=== PATIENT | female | born 1990 | race Caucasian/White ===

== ENCOUNTER 2020-01-23 13:36 | Outpatient (CLI) | payer MEDICAID ==
[~2020-01-23] VITALS: Ht 167.6 cm; Wt 72.1 kg
[2020-01-23 14:21] VITALS: BP 121/72
--- NOTE | 2020-01-23 15:45 | Consultation ---
DATE OF CONSULTATION: 01/23/2020 CHIEF COMPLAINT: Abdominal pain, nausea chronic, constipation. PAST MEDICAL HISTORY: 1. Hypertension. 2. Depression. 3. Bulimia. PAST SURGICAL HISTORY: Tonsillectomy. MEDICATIONS: Please see medication reconciliation list. FAMILY HISTORY: Noncontributory. SOCIAL HISTORY: The patient denies any tobacco, alcohol, or drug abuse. ALLERGIES: No known allergies. REVIEW OF SYSTEMS: Positive for abdominal pain, GERD, constipation, nausea chronic, bloating. PHYSICAL EXAMINATION: VITAL SIGNS: Temperature 97, blood pressure 121/72, pulse 62, respirations 20. HEENT: Normocephalic and atraumatic. Sclerae anicteric. NECK: Supple. No evidence of obvious lymphadenopathy. CARDIOVASCULAR: Regular rate and rhythm. Plus S1 and S2. LUNGS: Clear to auscultation bilaterally. ABDOMEN: Positive bowel sounds. Soft and nontender. No rebound. No guarding. No peritoneal sign. EXTREMITIES: No cyanosis, no clubbing, no edema. ASSESSMENT AND PLAN: This is a 30-year-old female with chronic nausea since October 2019 she moved back to home to live with her parents. Denies any change in diet. She has prior history of bulimia, Zofran did not help her. We gave a prescription for omeprazole and also we are going to go and schedule for endoscopy. The patient also has symptoms of constipation, IBS. The patient was given prescription for Align one tablet p.o. daily. Given the constipation, we want to avoid Elavil. The patient to come back after endoscopy for followup. Manolo Friedman M.D. DR: Emmett JOB#: [id number] CC:
[2020-01-24] MEDS ORDERED: WELLBUTRIN XL150 MG ORAL (08:29)
[2020-01-24] MEDS ORDERED: LEXAPRO20 MG ORAL (08:29)
[2020-01-24] MEDS ORDERED: HYDRALAZINE HCL10 MG ORAL (08:29)
== END 2020-01-23 15:36 | disposition home or self-care (01) ==
LOC: PAN 13:36
DX: R10.9 Unspecified abdominal pain (principal); R11.0 Nausea; K59.00 Constipation, unspecified; I10 Essential (primary) hypertension; F32.9 Major depressive disorder, single episode, unspecified; K21.9 Gastro-esophageal reflux disease without esophagitis; R14.0 Abdominal distension (gaseous)
CPT/HCPCS: G0463

== ENCOUNTER 2020-03-22 13:10 | Outpatient (CLI) | payer MEDICAID ==
[~2020-03-22 13:10] MED LIST: HYDRALAZINE HCL10 MG ORAL; LEXAPRO20 MG ORAL; WELLBUTRIN XL150 MG ORAL
[2020-03-22 13:22] VITALS: BP 120/65
--- NOTE | 2020-03-22 13:47 | General Progress Note ---
Subjective ROS Limited/Unobtainable: No Allergies: Coded Allergies: No Known Allergies (Unverified , 01/23/20) Objective Last 24 Hour Vital Signs Date Time Temp Pulse Resp B/P (MAP) Pulse Ox O2 Delivery O2 Flow Rate FiO2 03/22/20 13:22 97.2 82 16 120/65 95 General Appearance: alert EENT: normal ENT inspection Neck: supple Cardiovascular: normal rate Respiratory/Chest: decreased breath sounds Abdomen: normal bowel sounds, non tender, soft Extremities: non-tender Assessment/Plan Assessment/Plan: s/p EGD gastritis given nausea with work out will order CT Manolo Friedman MD Mar 22, 2020 13:47
== END 2020-03-22 15:10 | disposition home or self-care (01) ==
LOC: PAN 13:10
DX: K29.70 Gastritis, unspecified, without bleeding (principal); R11.0 Nausea
CPT/HCPCS: 99212